=== PATIENT | female | born 1970 | race Caucasian/White ===

== ENCOUNTER 2025-04-26 09:50 | Outpatient (CLI) | payer OTHER, SELFPAY ==
--- NOTE | ~2025-04-26 | MMUS_ITS ---
MM DIAGNOSTIC [facility] BIW YOVANNY AND US BREAST RT LIMITED INDICATION: 54-year old female; with palpable right breast lump COMPARISON: 06/05/2017 TECHNIQUE: Digital breast tomosynthesis CC and MLO views of BILATERAL breasts and True lateral, spot compression in MLO and cc views of the right breast were obtained with computer-aided detection to as sist in interpretation of the study. Patient cannot confidently identify palpable area today, so a ra diopaque skin marker was not placed. FINDINGS: The breasts are almost entirely fatty. A high density mass with irregular margins in the inferior slightly medial at middle depth location i n the right breast is identified. There are no other suspicious masses, calcifications, architectural distortion or other abnormality in either breast. RIGHT BREAST ULTRASOUND FINDINGS: A 2.9 x 2.1 x 2.4 cm irregular shaped hypoechoic mass at 5:00 location 4 cm from the nipple in the RI GHT breast correlates to the area of palpable lump. IMPRESSION: Highly suspicious 2.9 cm right breast irregular hypoechoic mass at 5:00 location correlates to the pa lpable lump. RECOMMENDATION: Ultrasound-guided core needle biopsy right breast mass. BI-RADS 5, HIGHLY SUSPICIOUS FOR MALIGNANCY Reviewed, dictated and finalized at location B. IMPRESSION: Highly suspicious 2.9 cm right breast irregular hypoechoic mass at 5:00 locatio n correlates to the palpable lump. RECOMMENDATION: Ultrasound-guided core needle biopsy right breast mass. BI-RADS 5, HIGHLY SUSPICIOUS FOR MALIGNANCY
== END 2025-04-26 09:51 | disposition home or self-care (01) ==
PROVIDERS: PCP Nurse Practitioner; Visit Provider Nurse Practitioner
DX: N63.10 Unspecified lump in the right breast, unspecified quadrant (principal); N63.20 Unspecified lump in the left breast, unspecified quadrant; R92.8 Other abnormal and inconclusive findings on diagnostic imaging of breast
CPT/HCPCS: 76642; 77062; 77066; G0279